=== PATIENT | female | born 2005 | race Caucasian/White ===

== ENCOUNTER 2025-06-24 07:07 | Emergency (ER) | payer OTHER, SELFPAY ==
--- OUTSIDE RECORDS SUMMARY | 2010-12-02 09:51 | XMS_ITS | Encounter Summary ---
Author Organization [facility] 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 Never 02/12/2020 Average Number of Drinks Not on file 020 Frequency of Binge Drinking Not on file 04/2020 Comments Unknown Sex and Gender Information Value Date Recorded Sex Assigned at Not on file Legal Sex Female 10:59 AM EST Gender Identity Not on file Sexual Orientation Not on file documented as of this encounter Functional Status documented as of this encounter Plan of Treatment Not on file documented as of this encounter Visit Diagnoses Not on filedocumented in this encounter
--- OUTSIDE RECORDS SUMMARY | 2010-12-04 01:03 | XMS_ITS | Encounter Summary ---
Author Organization [facility] 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
[2025-06-24 07:13] VITALS: BP 163/88; PULSE 80; O2SAT 98; BMI 35.5
--- OUTSIDE RECORDS SUMMARY | 2025-06-24 07:15 | XMS_ITS | Clinical Summary ---
Author Organization [facility] Address [address], [address] [place] [address] Care Team Providers Care Wanigan Clerk Name Role Phone Arnaud Greco MD Primary Care Provider Allergies No known active allergies Medications drospirenone-eth inyl estradiol (MARIETTA 28) 3-0.03 MG TABSIndications: Irregular menstrual cycle Take 1 tablet by mouth daily 1 packet 12 02/12/2020 Active Social History Tobacco Use Types Packs/Day Years [...] on file Sexual Orientation Not on file Last Filed Vital Signs Vital Sign Reading Time Taken Comments Blood Pressure 121/80 02/12/2020 1:12 PM EDT Pulse - - Temperature - - Respiratory Rate - - Oxygen Saturation - - Inhaled Oxygen Concentration - - Weight 107 kg (236 lb) 02/12/2020 1:12 PM EDT Height 167.6 cm (5' 6 ) 02/12/2020 1:12 PM EDT Body Mass Index 38.09 02/12/2020 1:12 PM EDT Plan of Treatment Not on file Insurance [place] Care Teams Wanigan Clerk Relationship Specialty Start Date End Date Arnaud Greco MD PCP - General Family Medicine 02/12/20
[2025-06-24 07:28] VITALS: TEMP 36.5
--- NOTE | 2025-06-24 07:33 | ED_ITS ---
HPI HPI - General Adult General Chief complaint: Nausea/Vomiting/Diarrhea Stated complaint: vomiting Time Seen by Provider: 06/24/25 07:26 Source: patient Mode of arrival: walk-in Limitations: no limitations History of Present Illness HPI narrative: 19-year-old female presents to the emergency department for nausea vomiting and diarrhea. It started at 4:00 this morning. She states that few people have been sick at work. No hematemesis or blood in her diarrhea. She has not had a fever. She continues to feel nauseous. Related Data Previous Rx's ?Medication ?Instructions ?Recorded ondansetron 4 mg disintegrating 4 mg PO Q6H PRN nausea and 06/24/25 tablet vomiting #20 tabs Allergies Allergy/AdvReac Type Severity Reaction Status Date / Time No Known Drug Allergies Allergy Verified 06/24/25 07:13 Review of Systems ROS Narrative A ten point review of systems is negative except as noted above. PFSH PFSH Social History Little interest or pleasure in doing things: not at all Feeling down, depressed, or hopeless: not at all Exam Narrative Exam Narrative: Nurses note and vital signs reviewed General:The patient appears well and in no apparent distress.Patient is resting comfortably on cart. Skin:Warm, dry, pallor noted.There is no rash noted. Head:Normocephalic, atraumatic Eye: Normal conjunctiva, no drainage Ears, Nose, Mouth, and Throat: oral mucosa is moist. Nares patent. Cardiovascular:Regular Rate and Rhythm Respiratory:Patient is in no distress, no accessory muscle use, lungs are clear to auscultation, no wheezing, rales or rhonchi Back:non-tender GI: Soft and nontender, nondistended Musculoskeletal: The patient has no evidence of calf tenderness, no pitting edema, symmetrical pulses noted bilaterally Neurological:A&O, normal speech Psychiatric:Cooperative Constitutional Vital Signs, click to edit/add: Last Vital Signs Temp 97.7 F 06/24/25 07:28 Pulse 80 06/24/25 07:13 Resp 18 06/24/25 07:13 BP 163/88 H 06/24/25 07:13 Pulse Ox 98 06/24/25 07:13 O2 Del Method Room Air 06/24/25 07:13 Course Vital Signs Vital signs: Vital Signs Pulse Rate 80 06/24/25 07:13 Respiratory Rate 18 06/24/25 07:13 Blood Pressure 163/88 H 06/24/25 07:13 Pulse Oximetry 98 06/24/25 07:13 Oxygen Delivery Method Room Air 06/24/25 07:13 Temperature 97.7 F 06/24/25 07:28 Pulse Rate 80 06/24/25 07:13 Respiratory Rate 18 06/24/25 07:13 Blood Pressure 163/88 H 06/24/25 07:13 Pulse Oximetry 98 06/24/25 07:13 Oxygen Delivery Method Room Air 06/24/25 07:13 Medical Decision Making MDM Narrative Medical decision making narrative: The patient feels improved after IV fluids and Zofran and is able to be discharged home. Blood workup is negative including test. Treatment diagnosis and follow-up were discussed with the patient. Differential Diagnosis Differential Diagnosis: Gastroenteritis, food poisoning, dehydration Lab Data Lab results reviewed: Yes I reviewed the patient's lab results Labs: Lab Results 06/24/25 06/24/25 Range/Units 07:18 07:42 WBC 12.5 H (4.0-11.0) 10^3/uL RBC 4.68 (4.20-5.40) 10^6/uL Hgb 12.5 (12.0-16.0) g/dL Hct 37.6 (36.0-48.0) % MCV 80.3 L (81.0-99.0) fL MCH 26.7 (26.7-34.0) pg MCHC 33.2 (29.9-35.2) g/dL RDW 12.5 (11.0-15.0) % Plt Count 348 (150-450) 10^3/uL MPV 8.8 L (9.5-13.5) fL Neut % (Auto) 80.4 H (43.0-75.0) % Lymph % (Auto) 13.9 L (20.5-60.0) % [place] % (Auto) 4.5 (1.7-12.0) % Eos % (Auto) 0.5 L (0.9-7.0) % Baso % (Auto) 0.4 (0.2-2.0) % Neut # (Auto) 10.0 H (1.4-6.5) 10^3/uL Lymph # (Auto) 1.7 (1.2-3.8) 10^3/uL [place] # (Auto) 0.6 (0.3-0.8) 10^3/uL Eos # (Auto) 0.1 (0.0-0.7) 10^3/uL Baso # (Auto) 0.1 (0.0-0.1) 10^3/uL Abs Immat Gran (auto) 0.04 H (0.00-0.03) 10^3/uL Imm/Tot Granulo (auto) 0.3 (0.0-0.5) % Sodium 139 (136-145) mmol/L Potassium 3.8 (3.5-5.1) mmol/L Chloride 103 (98-107) mmol/L Carbon Dioxide 25.6 (21.0-32.0) mmol/L Anion Gap 14.2 BUN 10.0 (7.0-18.0) mg/dL Creatinine 0.67 (0.55-1.02) mg/dL Est GFR ( Amer) >60 (>=60 mL/min/1.73m^2) Est GFR (Non-Af Amer) >60 (>=60 mL/min/1.73m^2) BUN/Creatinine Ratio 14.9 Glucose 133 H (74-106) mg/dL Calcium 8.9 (8.5-10.1) mg/dL Serum HCG, Qual Negative (NEGATIVE) Urine Color Yellow (YELLOW) Urine Clarity Clear (CLEAR) Urine pH 6.5 (5.0-9.0) Ur Specific [place] 1.025 (1.005-1.025) Urine Protein Trace (NEG/TRACE) mg/dL Urine Glucose (UA) Negative (NEGATIVE) mg/dL Urine Ketones Trace A (NEGATIVE) mg/dL Urine Occult Blood Negative (NEGATIVE) Urine Nitrite Negative (NEGATIVE) Urine Bilirubin Negative (NEGATIVE) Urine Urobilinogen 0.2 (0.2-1.0) EU/dL Ur Leukocyte Esterase Negative (NEGATIVE) Discharge Plan Discharge Chief Complaint: Nausea/Vomiting/Diarrhea Clinical Impression: Nausea, vomiting, and diarrhea Patient Disposition: Home, Self-Care Time of Disposition Decision: 09:02 Condition: Good Mode of Transportation: Private Vehicle Prescriptions / Home Meds: New ondansetron 4 mg tablet,disintegrating 4 mg PO Q6H PRN (Reason: nausea and vomiting) Qty: 20 0RF Print Language: Maori Instructions: Acute Nausea and Vomiting (ED), Acute Diarrhea (ED) Referrals: Arnaud Greco MD [Primary Care Provider, Family Practice] - 1 week
[2025-06-24 07:50] LABS: Hematocrit 37.6 % (36.0-48.0); Hemoglobin 12.5 g/dL (12.0-16.0); Immature Granulocytes Abs Auto 0.04 10^3/uL (0.00-0.03); Immature Granulocytes Pct Auto 0.3 % (0.0-0.5); Lymphocytes Absolute Auto 1.7 10^3/uL (1.2-3.8); Mean Corpuscular HGB Conc 33.2 g/dL (29.9-35.2); Mean Corpuscular Hemoglobin 26.7 pg (26.7-34.0); Mean Corpuscular Volume 80.3 fL (81.0-99.0); Platelet Count 348 10^3/uL (150-450); Red Blood Count 4.68 10^6/uL (4.20-5.40); White Blood Count 12.5 10^3/uL (4.0-11.0)
[2025-06-24] MEDS: 0.9 % SODIUM CHLORIDE 1,000 ML 1000 ML IV (07:51)
[2025-06-24 08:03] LABS: Anion Gap 14.2; Blood Urea Nitrogen 10.0 mg/dL (7.0-18.0); Calcium 8.9 mg/dL (8.5-10.1); Carbon Dioxide 25.6 mmol/L (21.0-32.0); Chloride 103 mmol/L (98-107); Estimated GFR (African America >60 (>=60 mL/min/1.73m^2); Estimated GFR (Non-African Ame >60 (>=60 mL/min/1.73m^2); Glucose 133 mg/dL (74-106); Potassium 3.8 mmol/L (3.5-5.1); Sodium 139 mmol/L (136-145)
[2025-06-24 08:17] LABS: Glucose Urine UA NEGATIVE (NEGATIVE)
[2025-06-24] MEDS: KETOROLAC TROMETHAMINE 30 MG/ML VIAL IVP (08:40)
== END 2025-06-24 09:10 | disposition home or self-care (01) ==
PROVIDERS: Emergency Provider Emergency Medicine; PCP Family Medicine
DX: R11.2 Nausea with vomiting, unspecified (principal); R19.7 Diarrhea, unspecified
CPT/HCPCS: 36415; 80048; 81003; 84703; 85025; 96361; 96374; 96375; 99284; J1885; J2405